=== PATIENT | female | born 1975 | race Caucasian/White ===

== ENCOUNTER → 2024-01-20 16:10 | Outpatient (REF) | payer BC, SELFPAY | LOC: WDC 16:10 | PROVIDERS: ATTENDING PHYSICIAN Obstetrics & Gynecology Gynecology; FAMILY PHYSICIAN Family Medicine | DX: Z12.31 Encounter for screening mammogram for malignant neoplasm of breast (principal) | CPT/HCPCS: 77063; 77067 ==

== ENCOUNTER → 2025-01-26 15:54 | Outpatient (REF) | payer BC, SELFPAY | LOC: WDC 15:54 | PROVIDERS: ATTENDING PHYSICIAN Obstetrics & Gynecology Gynecology; FAMILY PHYSICIAN Family Medicine | DX: Z12.31 Encounter for screening mammogram for malignant neoplasm of breast (principal) | CPT/HCPCS: 77063; 77067 ==

== ENCOUNTER 2025-03-26 06:06 | Day surgery (SDC) | payer BC, SELFPAY ==
[2025-03-26] VITALS (9 sets, daily range): BP systolic 100–137; BP diastolic 67–83; BMI 25.1
[2025-03-26] MEDS: CELEBREX 200 MG PO (09:31)
[2025-03-26] MEDS: TYLENOL 1000 MG PO (09:31)
[2025-03-26] MEDS: NORMOSOL-R/PLASMALYTE-A 1000 IV (09:32)
[2025-03-26] MEDS: SUBLIMAZE 25 MCG IV ×2 (12:30→12:42)
== END 2025-03-26 13:45 | disposition home or self-care (01) ==
LOC: SDS 06:06
PROVIDERS: ATTENDING PHYSICIAN Specialist
DX: S83.272A Complex tear of lateral meniscus, current injury, left knee, initial encounter (principal); X58.XXXA Exposure to other specified factors, initial encounter
CPT/HCPCS: 29881